=== PATIENT | male | born 1975 | race Two or more races ===

== ENCOUNTER → 2024-10-07 | Outpatient (CLI) | payer MEDICAID, SELFPAY ==
--- NOTE | 2024-10-07 14:32 | XR_ITS ---
Examination: PA lateral chest 2 views TECHNIQUE: Upright PA lateral chest 2 views Date and time: October 07, 2024 1438 hours INDICATIONS: Acute coughing one week. FINDINGS: Significant left perihilar pneumonia Normal heart size Right lung clear Mild osteopenia IMPRESSION: Significant left perihilar pneumonia, differential would include coccidiomycosis, tuberculosis
== END | disposition home or self-care (01) ==
PROVIDERS: PCP Nurse Practitioner Family; Referring Provider Nurse Practitioner Family; Visit Provider Nurse Practitioner Family
DX: J18.9 Pneumonia, unspecified organism (principal)
CPT/HCPCS: 71046

== ENCOUNTER → 2024-11-02 | Outpatient (CLI) | payer MEDICAID, SELFPAY ==
--- NOTE | 2024-11-02 | XR_ITS ---
Ventilation: PA lateral chest 2 views TECHNIQUE: Upright PA lateral chest 2 views Date and time: November 02, 2024 1206 hours Comparison the 2024 INDICATIONS: History left lung pneumonia on chest film October 07, 2024 FINDINGS: Normal heart size Left lung pneumonia has cleared No current pneumonia Intact osseous structures IMPRESSION: No active disease
== END | disposition home or self-care (01) ==
PROVIDERS: PCP Physician Assistant Medical; Referring Provider Physician Assistant Medical; Visit Provider Physician Assistant Medical
DX: J18.9 Pneumonia, unspecified organism (principal)
CPT/HCPCS: 71046